=== PATIENT | female | born 1970 ===

== ENCOUNTER 2017-03-30 12:17 | Emergency (ER) | payer MEDICAID, OTHER ==
[2017-03-30 12:22] VITALS: TEMP 98.4; O2SAT 99
[2017-03-30] MEDS ORDERED: Oxycodone/Acetaminophen 5/325 mg Tab PO STA (13:04)
--- NOTE | 2017-03-30 13:07 | C.PDOC ---
History Of Present Illness 47 yo female come in for evaluation of Right upper toothache gradually worsened for past 3-4 days associated with mild facial swelling since today AM. P admits , similar sx in past. Pt denies fever, chills, recent dental work, drooling, trismus, dyspnea, dysphagia, SOB, cough, wheezing, abd. pain, N/V/D, denies recent trauma or injury. Time Seen by Provider: 03/30/17 12:32 Chief Complaint (Nursing): Dental Pain History Per: Patient History/Exam Limitations: no limitations Onset/Duration Of Symptoms: Days (3-4 ) Current Symptoms Are (Timing): Still Present Past Medical History Reviewed: Historical Data, Nursing Documentation, Vital Signs Vital Signs: Last Vital Signs Temp 98.4 F 03/30/17 12:20 Pulse 89 03/30/17 13:18 Resp 18 03/30/17 13:18 BP 116/78 03/30/17 13:18 Pulse Ox 99 03/30/17 13:49 - Medical History PMH: Depression, HTN (not on meds), Malignancy (ovarian CA) Surgical History: - [facility] Procedures APPLICATION OF SPLINT (01/23/13) Family History: States: No Known Family Hx - Social History Hx Tobacco Use: Yes Hx Alcohol Use: No Hx Substance Use: Yes - Immunization History Hx Tetanus Toxoid Vaccination: No Hx Influenza Vaccination: Yes Hx Pneumococcal Vaccination: No Review Of Systems Except As Marked, All Systems Reviewed And Found Negative. Constitutional: Positive for: Other ((+) Mild facial swelling). Negative for: Fever, Chills ENT: Positive for: Other ((+) Right upper toothache.) Respiratory: Negative for: Cough, Shortness of Breath, Wheezing Gastrointestinal: Negative for: Nausea, Vomiting, Abdominal Pain, Diarrhea Physical Exam - Physical Exam Appears: Well, Non-toxic, No Acute Distress Skin: Normal Color, Warm, Dry, No Rash Eye(s): bilateral: PERRL Ear(s): Bilateral: Normal Nose: No Discharge Oral Mucosa: Moist, No Drooling, No Trismus Tongue: Normal Appearing Lips: Normal Appearing Teeth: Caries, Tender To Palpation (Right upper canine) Gingiva: Erythema (Right upper canine), Swelling (Right upper canine), Tender Throat: No Erythema, No Exudate, No Drooling, Other (uvula midline, no edema.) Neck: No Midline Cervical Tenderness, No Paracervical Tenderness, No Step Off Deformity, Supple Cardiovascular: Rhythm Regular Respiratory: No Decreased Breath Sounds, No Accessory Muscle Use, No Rales, No Rhonchi, No Stridor, No Wheezing Extremity: No Pedal Edema, No Deformity Neurological/Psych: Oriented x3, Normal Speech ED Course And Treatment O2 Sat by Pulse Oximetry: 99 (RA) Pulse Ox Interpretation: Normal Progress Note: On re-eval, pt is afebrile, hemodynamicaly stable. Non-toxic. Tolerate Po well in ED. PulseOx 99% RA. ENT: exam c/w Right upper early abscess, no flactulance. uvula midline, no edema. neck: Supple, (-) meningeal sign. Lungs: CTA B/L, BS equal B/L. Neuorlogicay intact. Pt advised, ref. to f/u with Dentist in 2-3 days for re-eavl. return i any new changes. Medical Decision Making Medical Decision Making: PLAN: * Clindamycin PO * Percocet PO Disposition Counseled Patient/Family Regarding: Diagnosis, Need For Followup, Rx Given - Disposition Referrals: [facility] [Provider Group] [facility] [Provider Group] Disposition: HOME/ ROUTINE Disposition Time: 13:05 Condition: STABLE Additional Instructions: Warm salty water tooth baths 2-3 times daily for minutes Take medication as prescribed Follow up with dentist in 2-3 days for re-evaluation. return to Ed if any worsening or new changes. Prescriptions: Clindamycin [Cleocin] 300 mg PO Q6 #28 cap traMADol [Ultram] 50 mg PO TID #7 tab Instructions: Dental Abscess (ED) Forms: [employer] ([place]) - Clinical Impression Clinical Impression: Dental abscess - PA / [employer]OW[employer]NER / Resident Statement MD/DO has reviewed & agrees with the documentation as recorded. - Scribe Statement The provider has reviewed the documentation as recorded by the Scribe Maria Guadalupe Almodovar All medical record entries made by the Scribe were at my direction and personally dictated by me. I have reviewed the chart and agree that the record accurately reflects my personal performance of the history, physical exam, medical decision making, and the department course for this patient. I have also personally directed, reviewed, and agree with the discharge instructions and disposition.
[2017-03-30] MEDS ORDERED: Oxycodone/Acetaminophen 5/325 mg Tab ONE (13:11)
[2017-03-30 13:19] VITALS: BP 116/78; PULSE 89; RESP 18
== END 2017-03-30 13:24 | disposition home or self-care (01) ==
LOC: C.ER 12:17
DX: K04.7 Periapical abscess without sinus (principal)